=== PATIENT | female | born 1960 | race Caucasian/White ===

== ENCOUNTER 2024-08-25 09:54 | Outpatient (RCR) | payer MEDICARE, BC, SELFPAY | END 2024-11-02 12:13 | disposition home or self-care (01) | PROVIDERS: PCP Family Medicine; Visit Provider Student in an Organized Health Care Education/Training Program | DX: N39.41 Urge incontinence (principal); Z51.89 Encounter for other specified aftercare | CPT/HCPCS: 97112; 97140; 97161 ==